=== PATIENT | female | born 1995 | race Caucasian/White ===

== ENCOUNTER 2020-01-06 07:21 | Emergency (ER) | payer MEDICAID ==
[~2020-01-06] VITALS: Ht 162.6 cm; Wt 81.6 kg
[2020-01-06 07:21] VITALS: BP_SYST 145
--- NOTE | 2020-01-06 07:21 | NUR ---
BROUGHT BACK TO BED #7 AND TRIAGED. REPORT GIVEN TO YOANDY
--- NOTE | 2020-01-06 07:30 | NUR ---
Patient presentes to ER C/O ORAL PAIN. Patient A&Ox4, ambulatory to ER, afebrile, skin pink and warm, pain 10 /10, denies N/V/D. Patient states oral pain x3 days, was seen at last night given ABX & mouth wash, no relief.
--- NOTE | 2020-01-06 07:46 | NUR ---
ER Dr. Braxton at bedside examining patient.
[2020-01-06] MEDS ORDERED: CEFAZOLIN 1 GM IVPB PREMIX 50 ML IV ONE (08:00)
[2020-01-06] MEDS ORDERED: NACL 0.9% 1,000 ML IV ONE (08:00)
[2020-01-06] MEDS ORDERED: KETOROLAC TROMETHAMINE 30 MG VIAL IVP ONE (08:00)
[2020-01-06 08:23] LABS: BASOPHILS % (AUTO) 0.3 % (0.0-2.0); HEMATOCRIT 43.8 % (36-48); LYMPHOCYTES # (AUTO) 1.5 K/uL (1.0-5.5); MEAN CORPUSCULAR HEMOGLOBIN 32 pg (27-31); MEAN CORPUSCULAR HGB CONC 34 % (32-36); MEAN CORPUSCULAR VOLUME 94 fL (79.0-98.0); MONOCYTES # (AUTO) 1.4 K/uL (0.0-1.0); MONOCYTES % (AUTO) 12.6 % (1.7-9.3); NEUTROPHILS # (AUTO) 8.5 K/uL (1.8-7.7); NEUTROPHILS % (AUTO) 74.1 % (40.0-70.0); PLATELET COUNT (AUTO) 225 K/uL (130-430); RED BLOOD CELL COUNT(AUTO) 4.65 MIL/uL (4.2-6.2); RED CELL DISTRIBUTION WIDTH 12.7 % (9.0-15.0); WHITE BLOOD COUNT (AUTO) 11.4 K/uL (4.8-10.8)
[2020-01-06 08:26] LABS: BILIRUBIN,URINE NEGATIVE (NEGATIVE); BLOOD, URINE 1+ (NEGATIVE); CLARITY/URINE CLEAR (CLEAR); COLOR,URINE YELLOW (YELLOW); GLUCOSE,URINE NEGATIVE (NEGATIVE); KETONES,URINE TRACE (NEGATIVE); LEUKOCYTE ESTERASE ,URINE NEGATIVE (NEGATIVE); NITRITE, URINE NEGATIVE (NEGATIVE); PROTEIN URINE TRACE (NEGATIVE); UROBILINOGEN,URINE 0.2 (0.2-1.0)
[2020-01-06 08:33] LABS: ANION GAP 11 (5-15); CALCIUM 9.1 mg/dL (8.4-11.0); CHLORIDE 96 mmol/L (98-107); CREATININE 0.98 mg/dL (0.55-1.30); GLUCOSE 104 mg/dL (70-99); POTASSIUM 3.7 mmol/L (3.5-5.1); SODIUM SERUM 133 mmol/L (136-145); UREA NITROGEN, BLOOD 10 mg/dL (8-21)
[2020-01-06 08:35] LABS: GFR AFRICAN AMERICAN 91 mL/min (>90)
[2020-01-06 08:36] LABS: INR 1.1 (0.8-1.2); PROTHROMBIN TIME 11.2 SECS (9.5-12.5)
[2020-01-06 08:39] LABS: BARBITURATE, URINE NEGATIVE (NEG <=200); BENZODIAZEPINE, URINE NEGATIVE (NEG <=150); CANNABINOID, URINE NEGATIVE (NEG <=50); COCAINE, URINE NEGATIVE (NEG <=150); METHAMPHETAMINES SCREEN,URINE NEGATIVE (NEG <=500); OPIATE, URINE NEGATIVE (NEG <=100); PHENCYCLIDINE SCREEN,URINE NEGATIVE (NEG <=25); UR TRICYCLIC ANTIDEPRESSANTS NEGATIVE (NEG <=300); URINE AMPHETAMINE NEGATIVE (NEG <=500); URINE METHADONE NEGATIVE (NEG <=200); URINE OXYCODONE SCREEN NEGATIVE (NEG <=100); URINE PROPOXYPHENE SCREEN NEGATIVE (NEG <=300)
[2020-01-06 08:40] LABS: BACTERIA,URINE FEW /HPF (None Seen); MUCUS,URINE 1+ /LPF (None Seen)
[2020-01-06 08:50] LABS: ALANINE AMINOTRANSFERASE 18 U/L (12-78); ALBUMIN 3.9 g/dL (3.4-4.8); ASPARTATE AMINOTRANSFERASE 14 U/L (10-37); FREE T4 (FREE THYROXINE) 1.3 ng/dl (0.8-1.5); TOTAL BILIRUBIN 0.6 mg/dL (0.0-1.0)
[2020-01-06 08:51] LABS: ALCOHOL, BLOOD < 3 mg/dL (<10)
[2020-01-06 09:30] VITALS: BP_SYST 123
--- NOTE | 2020-01-06 09:30 | NUR ---
Patient given written and verbal discharge instructions and verbalizes understanding. ER MD discussed with patient the results and treatment provided. Patient in stable condition. ID arm band removed. IV catheter removed intact and dressing applied, no active bleeding. Rx of motrin & chlorhexidine given. Patient educated on pain management and to follow up with PMD. Pain Scale 5/10 tolerable for pt. Opportunity for questions provided and answered. Medication side effect fact sheet provided.
== END 2020-01-06 09:30 | disposition home or self-care (01) ==
LOC: SED 07:21
DX: K05.10 Chronic gingivitis, plaque induced (principal)
CPT/HCPCS: 36415; 80053; 80307; 81000; 81025; 83605; 84439; 85025; 85610; 87040; 87086; 96365; 96375; 99284; G0482; J0690; J1885; J7030